=== PATIENT | female | born 1970 | race Hispanic/Latino ===

== ENCOUNTER 2017-05-13 20:56 | Emergency (ER) | payer SELFPAY ==
[~2017-05-13] VITALS: Ht 157.5 cm; Wt 63.6 kg
[2017-05-13 21:20] VITALS: BP 114/75; PULSE 66; RESP 16; O2SAT 100
== END 2017-05-13 23:20 | disposition left against medical advice (07) ==
LOC: SED 20:56
DX: M79.642 Pain in left hand (principal); Z53.21 Procedure and treatment not carried out due to patient leaving prior to being seen by health care provider